=== PATIENT | female | born 1950 ===

== ENCOUNTER 2021-03-18 11:00 | Inpatient (IN) | payer OTHER ==
[~2021-03-18] VITALS: Ht 157.5 cm; Wt 63.5 kg
[~2021-03-18 11:00] MED LIST: ATORVASTATIN CA40 MG PO; CLONAZEPAM0.5 MG PO; COZAAR100 MG PO; DICLOFE PO; GLIPIZIDE XL5 MG PO; JANUMET XR 50-1 EAC1 PO; METFORM PO; PEPCID40 MG PO
[2021-03-20] MEDS ORDERED: METFORMIN HCL850 M1 PO (08:14)
[2021-03-20] MEDS ORDERED: DICLOFENAC SODI75 MG PO (08:15)
[2021-03-24] MEDS ORDERED: PERCOCET 5-3251 EACH PO (06:29)
== END 2021-03-24 09:45 | disposition home or self-care (01) | DRG 331 ==
LOC: EDSTATUS 11:00 → ADM 11:00 → O/R 03-20 05:28 → SURH 03-20 05:28
PROVIDERS: ADMIT Surgery; ATTEND Surgery
PROC: 0DTN4ZZ Resection of Sigmoid Colon, Percutaneous Endoscopic Approach (ICD-10-PCS; 2021-03-20)
PROC: 07BD4ZX Excision of Aortic Lymphatic, Percutaneous Endoscopic Approach, Diagnostic (ICD-10-PCS; 2021-03-20)
PROC: 3E0F7SF Introduction of Other Gas into Respiratory Tract, Via Natural or Artificial Opening (ICD-10-PCS; 2021-03-20)
PROC: 0DTP4ZZ Resection of Rectum, Percutaneous Endoscopic Approach (ICD-10-PCS; principal; 2021-03-20 07:00)
DX: D12.0 Benign neoplasm of cecum (principal); K66.0 Peritoneal adhesions (postprocedural) (postinfection); E11.9 Type 2 diabetes mellitus without complications; Z79.4 Long term (current) use of insulin; I11.9 Hypertensive heart disease without heart failure; E78.5 Hyperlipidemia, unspecified; Z20.822 Contact with and (suspected) exposure to COVID-19